=== PATIENT | male | born 1985 ===

== ENCOUNTER 2019-11-24 18:29 | Emergency (ER) | payer BC ==
--- NOTE | 2019-11-24 18:53 | EDM.PDOC ---
ED HPI GENERAL MEDICAL PROBLEM - General Chief Complaint: Upper Extremity Injury/Pain Stated Complaint: PT FELL AND HURT ARM Time Seen by Provider: 11/24/19 18:33 Source of Information: Reports: Patient History Limitations: Reports: No Limitations - History of Present Illness INITIAL COMMENTS - FREE TEXT/NARRATIVE: HISTORY AND PHYSICAL: History of present illness: Patient is a 34-year-old male who presents to the emergency room with complaints of right shoulder pain. He states prior to arrival he had slipped and fallen on the ice landing on his right shoulder. He denies hitting his head or having any loss of consciousness. States he is having difficulty raising his arm, most of the pain is into the anterior shoulder girdle. Denies any numbness or tingling of the affected extremity. Denies any previous fractures or surgeries of the affected extremity. Offers no systemic complaints at this time. Review of systems: As per history of present illness and below otherwise all systems reviewed and negative. Past medical history: As per history of present illness and as reviewed below otherwise noncontributory. Surgical history: As per history of present illness and as reviewed below otherwise noncontributory. Social history: See social history for further information Family history: As per history of present illness and as reviewed below otherwise noncontributory. Physical exam: General: Well-developed and well-nourished 34-year-old male. Alert and oriented. Nontoxic-appearing and in no acute distress. HEENT: Atraumatic, normocephalic, pupils equal and reactive bilaterally, negative for conjunctival pallor or scleral icterus, mucous membranes moist, TMs normal bilaterally, throat clear, neck supple, nontender, trachea midline. No drooling or trismus noted. No meningeal signs. No hot potato voice noted. Lungs: Clear to auscultation, breath sounds equal bilaterally, chest nontender. Heart: S1S2, regular rate and rhythm without overt murmur Abdomen: Soft, nondistended, nontender. Negative for masses or hepatosplenomegaly. Negative for costovertebral tenderness. Pelvis: Stable nontender. C-spine/Back: No pinpoint vertebral tenderness upon palpation. No crepitus, step -offs or obvious deformities. Patient is ambulatory into the emergency room without difficulty or deficit. Able to rock back on heels and walk on toes. Denies any urinary or fecal incontinence. Denies any numbness, tingling or saddle paresthesia. Skin: Intact, warm, dry. No lesions or rashes noted. Extremities: Limited range of motion of the right shoulder. Pain with palpation of the right anterior shoulder. Refuses to lift his arm up greater than 45 degrees frontward or the. Otherwise moves all other extremities per self without difficulty or deficits, negative for cords or calf pain. Neurovascular unremarkable. Neuro: Awake, alert, oriented. Cranial nerves II through XII unremarkable. Cerebellum unremarkable. Motor and sensory unremarkable throughout. Exam nonfocal. Notes: X-ray shows no acute findings. Will place patient in sling. We discussed the need for close follow-up with the orthopedic provider as he may need further imaging if he continues to have pain. Medication and supportive care measures were reviewed and discussed. Voices understanding and is agreeable to plan of care. Denies any further questions or concerns at this time. Diagnostics: X-ray Therapeutics: Sling Prescription: Tylenol #3 (15) Impression: Right shoulder injury Plan: 1. Rest, ice, elevate the affected extremity. Please wear the splint as directed. 2. Tylenol and/or Ibuprofen as needed for pain management. 3. Follow up with the Orthopedic provider as we discussed. Return to the ED as needed and as discussed. Definitive disposition and diagnosis as appropriate pending reevaluation and review of above. R shoulder Pain Score (Numeric/FACES): 8 - Related Data Allergies Allergy/AdvReac Type Severity Reaction Status Date / Time No Known Allergies Allergy Verified 11/24/19 18:49 Home Meds: Home Meds Acetaminophen with Codeine [Tylenol with Codeine #3 Tablet] 1 each PO Q4HR PRN # 15 tablet 11/24/19 [Rx] Review of Systems - Review of Systems Review Of Systems: Comprehensive ROS is negative, except as noted in HPI. ED EXAM, GENERAL - Physical Exam Exam: See Below (See dictation) Course - Vital Signs Last Recorded V/S: Last Vital Signs Temp 96.9 F 11/24/19 18:47 Pulse 101 H 11/24/19 20:45 Resp 16 11/24/19 20:45 BP 123/78 11/24/19 20:45 Pulse Ox 98 11/24/19 20:45 - Orders/Labs/Meds Orders: Active Orders 24 hr Category Date Time Status DME for Discharge [COMM] Stat Oth 11/24/19 20:13 Ordered Meds: Medications Discontinued Medications Generic Name Dose Route Start Last Admin Trade Name Freq PRN Reason Stop Dose Admin Hydrocodone Bitart/Acetaminophen 1 tab 11/24/19 20:13 Windber 325-5 Mg PO 11/24/19 20:14 ONETIME ONE Departure - Departure Time of Disposition: 20:11 Disposition: Home, Self-Care 01 Clinical Impression: Right shoulder injury Qualifiers: Encounter type: initial encounter Qualified Code(s): S49.91XA - Unspecified injury of right shoulder and upper arm, initial encounter - Discharge Information Prescriptions: Acetaminophen with Codeine [Tylenol with Codeine #3 Tablet] 1 each PO Q4HR PRN # 15 tablet PRN Reason: Pain Instructions: Shoulder Pain, [id number] Referrals: PCP,None [Primary Care Provider] - Forms: ED Department Discharge Additional Instructions: The following information is given to patients seen in the emergency department who are being discharged to home. This information is to outline your options for follow-up care. We provide all patients seen in our emergency department with a follow-up referral. The need for follow-up, as well as the timing and circumstances, are variable depending upon the specifics of your emergency department visit. If you don't have a primary care physician on staff, we will provide you with a referral. We always advise you to contact your personal physician following an emergency department visit to inform them of the circumstance of the visit and for follow-up with them and/or the need for any referrals to a consulting specialist. The emergency department will also refer you to a specialist when appropriate. This referral assures that you have the opportunity for follow-up care with a specialist. All of these measure are taken in an effort to provide you with optimal care, which includes your follow-up. Under all circumstances we always encourage you to contact your private physician who remains a resource for coordinating your care. When calling for follow-up care, please make the office aware that this follow-up is from your recent emergency room visit. If for any reason you are refused follow-up, please contact the [facility] at and asked to speak to the emergency department charge nurse. [facility] [address] [place] [id number] 1. Rest, ice, elevate the affected extremity. Please wear the sling as directed. 2. Tylenol and/or Ibuprofen as needed for pain management. 3. Follow up with the Orthopedic provider as we discussed, you may need further imaging (CT or MRI) if pain continues. 4. Return to the ED as needed and as discussed. Sepsis Event Note - Evaluation Sepsis Screening Result: No Definite Risk - Focused Exam Vital Signs: Vital Signs Temp Pulse Resp BP Pulse Ox 11/24/19 20:45 101 H 16 123/78 98 11/24/19 18:47 96.9 F 87 16 128/56 L 94 L Date Exam was Performed: 11/24/19 Time Exam was Performed: 21:25 - My Orders Last 24 Hours: My Active Orders 11/24/19 20:13 DME for Discharge [COMM] Stat - Assessment/Plan Last 24 Hours: My Active Orders 11/24/19 20:13 DME for Discharge [COMM] Stat
--- NOTE | 2019-11-24 20:07 | CR ---
Right shoulder: 3 views of the right shoulder were obtained. Comparison: No previous right shoulder study. Glenohumeral joint and acromioclavicular joint appears unremarkable. No fracture, dislocation or other bony abnormality is appreciated. Impression: 1. No abnormality is identified on right shoulder study. Diagnostic code #1 This report was dictated in [place] Standard Time
[2019-11-24] MEDS ORDERED: Acetaminophen/HYDROcodone 325-5 MG Tab PO ONE (20:13)
== END 2019-11-24 20:45 | disposition home or self-care (01) ==
LOC: MW.ED 18:29
DX: S49.91XA Unspecified injury of right shoulder and upper arm, initial encounter (principal); W00.0XXA Fall on same level due to ice and snow, initial encounter
CPT/HCPCS: 73030-26-RT; 73030-RT; 99283; 99283-25